=== PATIENT | male | born 1975 | race Caucasian/White ===

== ENCOUNTER 2017-04-12 15:57 | Emergency (ER) | payer OTHER ==
[~2017-04-12] VITALS: Ht 172.7 cm; Wt 81.7 kg
[~2017-04-12 15:57] MED LIST: CIPRO250 M1 PO; KEFLEX500 MG PO; NOHOMEMEDICATIONS; NORCO 5-325 TA1 EACH PO
[2017-04-12 16:00] VITALS: BP 133/86
[2017-04-12] MEDS ORDERED: CENTANY30 GM TOP (16:19)
[2017-04-12] MEDS ORDERED: SOOLANTRA30 GM TOP (16:19)
== END 2017-04-12 16:34 | disposition home or self-care (01) ==
LOC: ER 15:57
DX: L73.9 Follicular disorder, unspecified (principal); F17.220 Nicotine dependence, chewing tobacco, uncomplicated

== ENCOUNTER 2018-06-17 09:17 | Emergency (ER) | payer OTHER ==
[~2018-06-17] VITALS: Ht 172.7 cm; Wt 90.7 kg
[~2018-06-17 09:17] MED LIST changes: +CENTANY30 GM TOP; +KEFLEX500 M1 PO; +SOOLANTRA30 GM TOP
[2018-06-17 11:43] VITALS: BP 136/72
== END 2018-06-17 11:45 | disposition home or self-care (01) ==
LOC: ER 09:17
DX: S61.215A Laceration without foreign body of left ring finger without damage to nail, initial encounter (principal); W25.XXXA Contact with sharp glass, initial encounter; Y93.89 Activity, other specified; Y92.89 Other specified places as the place of occurrence of the external cause; Y99.8 Other external cause status; F17.200 Nicotine dependence, unspecified, uncomplicated

== ENCOUNTER 2018-07-22 03:55 | Emergency (ER) | payer OTHER ==
[~2018-07-22] VITALS: Ht 172.7 cm; Wt 77.1 kg
[2018-07-22 04:04] VITALS: BP 144/69
[2018-07-22 04:28] LABS: AMP/METHAMP POSITIVE (Negative); BARBITURATES Negative (Negative); BENZODIAZEPINES Negative (Negative); COCAINE Negative (Negative); METHADONE Negative (Negative); OPIATES Negative (Negative); PCP Negative (Negative)
== END 2018-07-22 04:33 | disposition home or self-care (01) ==
LOC: ER 03:55
PROVIDERS: Emergency Medicine
DX: R21 Rash and other nonspecific skin eruption (principal); F17.220 Nicotine dependence, chewing tobacco, uncomplicated